=== PATIENT | male | born 1960 | race Caucasian/White ===

== ENCOUNTER 2020-09-10 20:01 | Emergency (ER) | payer BC, SELFPAY ==
[2020-09-10 20:02] VITALS: BP 105/68; PULSE 87; RESP 23; TEMP 36.6; O2SAT 95; BMI 30.2
--- NOTE | 2020-09-10 20:36 | EKG12_ITS ---
Test Reason : SYNCOPE Blood Pressure : / mmHG Vent. Rate : 081 BPM Atrial Rate : 081 BPM P-R Int : 140 ms QRS Dur : 096 ms QT Int : 386 ms P-R-T Axes : 047 -16 013 degrees QTc Int : 448 ms Sinus rhythm with Premature atrial complexes Otherwise normal ECG Confirmed by LESLY WICK, MAKENZIE ([id number]), associate editor LIZ BAUTISTA ([id number]) on 09/13/2020 12:17:39 PM Referred By: SAI Confirmed By:GRADY GRACE MD
--- NOTE | 2020-09-10 20:36 | ED.VIS.GEN ---
History of Present Illness Chief Complaint: Syncope Informant: Patient Narrative: 60-year-old male presenting with an episode of syncope. He was said he was sitting at the table at a friend's house when he started to feel numb all over. He states this lasted very briefly and then he lost consciousness. He did not fall to the floor in fact he states that he still he just slumped over at the table. The patient's friend states that he was unconscious for short duration. He woke up alert and awake and there was no seizure activity. He recalls hearing her call 911 and told her not to call. He states that he drank 2 margaritas tonight but that was all and he would normally be able to handle this. He states he has no serious medical problems but has not seen a doctor in 14 years except for for ear infections. He has a history of migraine and only gets those about every 10 months. He states he had a headache yesterday and had to leave work which was unlike him. He currently does not have a headache. He denies having a headache before or after the incident. He states he feels back to normal now. He denies chest pain, palpitations, shortness of breath, lightheadedness, dizziness, nausea, vomiting. Past Medical History - Allergies and Home Meds Allergies/Adverse Reactions: Allergies No Known Allergies Allergy (Verified 09/10/20 20:23) Primary Care Physician: Care Physician,No Primary [Primary Care Provider] - Prior records reviewed: Yes Past Medical History: - - migraine headaches Surgical History: noncontributory Lives: Spouse/ Significant Other Smoking Status: Current every day smoker Alcohol: Occasional Drugs: None Review of Systems General: Denies: Chills, Fever, Sweats Eyes: Denies: Visual changes - bilaterally, Diplopia ENT: Denies: Rhinorrhea, Sore throat Cardiovascular: Reports: - - Brief episode of syncope. Denies: Chest pain, Palpitations, Heart racing Respiratory: Denies: Dyspnea, Cough, Dyspnea on exertion Gastrointestinal: Denies: Abdominal pain, Nausea, Vomiting, Diarrhea, Melena, Hematochezia Genitourinary: Denies: Dysuria, Hematuria, Frequency Musculoskeletal: Denies: Back pain, Extremity Pain Skin: Denies: Rash, Wounds Neurological: Reports: Headache. Denies: Parasthesia, Numbness Psych: Denies: Depression Physical Exam Vital Signs/Narrative: Vital Signs Temp Pulse Resp BP Pulse Ox 09/10/20 20:02 97.9 F 87 23 H 105/68 95 Inital Vital Signs reviewed: Yes General: Well nourished, No Acute Distress Head: Normocephalic, Atraumatic Eyes: Perrl, EOMI ENT: Moist mucous membranes, No rhinorrhea Cardiovascular: Regular rate, Regular rhythm, No murmurs Respiratory: No distress, CTA bilaterally, Chest nontender Abdomen: Soft, Nontender Extremities: Nontender, No edema Skin: Normal color, No rash. Negative for: Cyanosis, Diaphoresis Neurological: Alert, Oriented x3, Cranial nerves II-XII grossly intact Psychological: Normal affect, Normal Mood Diagnostic/Tx/Re-eval Clinical Impression(s) from Imaging Studies Brain CT 09/10/20 20:37 IMPRESSION: 1. Normal CT brain. Electronically Signed: Akin Mcmahon MD at 21:02 EST Tel , Service support , Chest X-Ray 09/10/20 20:47 IMPRESSION: Normal x-ray examination of the chest. Electronically Signed: Jerilyn Feliz MD at 21:01 EST Tel , Service support , Laboratory Data 09/10/20 09/10/20 09/10/20 19:35 19:35 20:45 WBC 8.0 RBC 5.05 Hgb 14.8 Hct 45.4 MCV 89.9 MCH 29.3 MCHC 32.6 RDW Std Deviation 46.0 H RDW Coeff of Surekha 14.0 Plt Count 231 MPV 10.1 Immature Gran % (Auto) 0.400 Neut % (Auto) 43.0 L Lymph % (Auto) 46.8 H [place] % (Auto) 7.3 Eos % (Auto) 1.9 Baso % (Auto) 0.6 Absolute Neuts (auto) 3.4 Absolute Lymphs (auto) 3.73 Nucleated RBC % 0 Sodium 139 Potassium 3.3 L Chloride 108 H Carbon Dioxide 24.0 Anion Gap 7 BUN 15 Creatinine 1.28 Estim Creat Clear Calc 67.00 Est GFR (MDRD) Af Amer 74 Est GFR (MDRD) Non-Af 61 BUN/Creatinine Ratio 11.7 Glucose 116 H Calcium 8.7 Troponin I < 0.015 Ethyl Alcohol 93.0 - Rhythm Strip Rhythm Strip: Sinus Rhythm Rate: 81 - EKG Initial EKG Interpretation: Sinus Rhythm, No Acute Injury Pattern - Medical Decision Making 60-year-old male presenting after episode of syncope which was a short duration and he woke up without any confusion I do not believe he had a seizure. He did admit to eating alcohol tonight. His EtOH is 93. Patient's EKG is sinus rhythm without signs of ischemic changes interpreted by myself. Chest x-ray is interpreted by myself shows no acute cardiopulmonary process and radiology does agree. Patient's lab work otherwise within normal limits. Patient maintained normal vital signs in the ED. He states that he feels fine. I do not believe he needs to be admitted to the hospital at this time. Patient counseled on follow-up as an outpatient and was given return precautions. Impression: 1. Syncope ED Disposition - Plan for ED Patient: Disposition: Home or Assisted Living Instructions: ED Near-Fainting, Uncertain Cause Referrals: Care Physician,No Primary [Primary Care Provider] -
[2020-09-10] MEDS: 0.9% Normal Saline 1,000 ML 1000 ML IV (20:37)
--- NOTE | 2020-09-10 20:37 | CT_ITS ---
STUDY: CT BRAIN WITHOUT CONTRAST REASON FOR EXAM: Male, 60 years old. Syncope hypertension headache RADIATION DOSAGE (If Supplied By Facility): CTDIvol = ( 44.99 ) mGy, DLP = ( 812.98 ) mGycm TECHNIQUE: Transaxial CT imaging of the brain was performed without administration of intravenous contrast material. Individualized dose optimization techniques were used for this CT. COMPARISON: No relevant priors. FINDINGS: Brain parenchyma is without focal lesions, mass effect, acute intracranial hemorrhage, extra parenchymal fluid collections, hydrocephalus or herniation. The skull is intact. CT/Brain/Head without Contrast IMPRESSION: 1. Normal CT brain. Electronically Signed: Akin Mcmahon MD at 21:02 EST Tel , Service support ,
[2020-09-10 20:40] VITALS: O2SAT 97
--- NOTE | 2020-09-10 20:45 | ED.RN ---
NO OLD EKG
--- NOTE | 2020-09-10 20:47 | RAD_ITS ---
STUDY: X-RAY CHEST REASON FOR EXAM: Male, 60 years old. SYNCOPAL EPISODE;HYPOTENSIVE,. TECHNIQUE: Single AP portable view of the chest. COMPARISON: None. FINDINGS: The lungs are clear and expanded. There is no demonstrated pleural abnormality. Normal size heart. Normal mediastinum and yanely. Normal visualized pulmonary arteries. Normal visualized aortic arch and descending thoracic aorta. Normal visualized thoracic spine. Normal visualized ribs, clavicles, and shoulders. There is no demonstrated abnormality of the visualized soft tissue structures of the upper abdomen. RAD/Chest 1 View (Portable) IMPRESSION: Normal x-ray examination of the chest. Electronically Signed: Jerilyn Feliz MD at 21:01 EST Tel , Service support ,
[2020-09-10 21:01] LABS: Absolute Lymphocyte Count 3.73 X10^3/uL (0.83-4.51); Absolute Neutrophil Count 3.4 X10^3/uL (2.0-7.7); Basophil# 0.05 X10^3/uL; Basophil% 0.6 % (0-1); Eosinophil# 0.15 X10^3/uL; Eosinophils% 1.9 % (0-5); Hematocrit 45.4 % (40-54); Hemoglobin 14.8 g/dL (13.0-16.5); Lymphocyte # 3.73 X10^3/ul (4.0); Lymphocyte % 46.8 % (19-41); Mean Corp Hgb Conc 32.6 g/dL (32-36); Mean Corpuscular Hgb 29.3 pg (27.0-32.0); Mean Corpuscular Volume 89.9 fL (80-94); Mean Platelet Vol. 10.1 fl (6.2-12.0); Monocyte# 0.58 X10^3/uL; Monocyte% 7.3 % (0-10); NRBC Flagged by Analyzer 0 % (0-5); Neutrophil # 3.43 X10^3/uL (2.7-7.7); Platelet Count 231 K/mm3 (150-450); Red Blood Count 5.05 M/mm3 (4.6-6.2)
[2020-09-10 21:08] LABS: Anion Gap 7 (5-15); BUN 15 mg/dL (7-18); BUN/Creat Ratio 11.7 RATIO (10-20); Calcium,Total 8.7 mg/dL (8.5-10.1); Chloride 108 mmol/L (98-107); Creatinine, Serum 1.28 mg/dL (0.70-1.30); EST Glomerular Filtration Rate 61 mL/min (>60); Est Glom Filt Rate - Afr Amer 74 mL/min (>60); Glucose 116 mg/dL (74-106); Potassium 3.3 mmol/L (3.5-5.1); Sodium Level 139 mmol/L (136-145)
[2020-09-10 21:39] VITALS: BP 113/70; PULSE 80; RESP 19; O2SAT 96
[2020-09-10 21:50] VITALS: BP 105/71; PULSE 80; RESP 20; O2SAT 96
== END 2020-09-10 21:50 | disposition home or self-care (01) ==
PROVIDERS: Emergency Provider Student in an Organized Health Care Education/Training Program
DX: R55 Syncope and collapse (principal); F17.200 Nicotine dependence, unspecified, uncomplicated
CPT/HCPCS: 70450; 71045; 80048; 82077; 84484; 85025; 93005; 99285; J7030; A4216

== ENCOUNTER → 2025-08-11 | Outpatient (CLI) | payer BC, SELFPAY ==
--- NOTE | 2025-08-11 09:34 | RAD_ITS ---
PROCEDURE: CHEST PA AND LATERAL 08/11/2025 REASON FOR EXAM: COUGH TECHNIQUE: Procedure Code: RADCXR Modality: DX Procedure: CHEST PA AND LATERAL COMPARISON: 09/10/2020 chest radiograph. FINDINGS: Normal cardiac silhouette and pulmonary vasculature. Dorsal spondylosis with slightly exaggerated kyphosis. Minimal patchy opacifications projecting over the left lung base on the frontal projection only, not seen on the lateral view. Lung pina otherwise clear without evidence of mass or nodule. No pleural effusion. RAD/Chest PA and Lateral IMPRESSION: Minimal patchy opacifications in the left lung base compared to previous. Clin ical correlation for pneumonia recommended. Reading Location: [facility]
== END | disposition home or self-care (01) ==
PROVIDERS: Referring Provider Physician Assistant; Visit Provider Physician Assistant
DX: R05.9 Cough, unspecified (principal)
CPT/HCPCS: 71046